=== PATIENT | male | born 1965 | race Caucasian/White ===

== ENCOUNTER → 2019-04-29 | Outpatient (CLI) | payer OTHER ==
[~2019-04-29] MED LIST: LANTUS SOLOS100 U/ML SC; NORCO 325 MG-7.1 TAB PO; TOPROL XL 25MG25 MG PO
== END ==
LOC: COL.VAS 08:00
DX: I73.9 Peripheral vascular disease, unspecified (principal)

== ENCOUNTER 2019-05-13 06:37 | Emergency (ER) | payer OTHER ==
[~2019-05-13] VITALS: Ht 177.8 cm; Wt 109.1 kg
[2019-05-13 07:32] LABS: BASO % 0.2 % (0.0-2.0); EOS # 0.1 (0.0-0.7); EOS % 1.7 % (0-4.0); GRAN # 2.1 (1.4-6.5); GRAN % 50.6 % (42.2-75.2); HEMOGLOBIN 13.9 g/dl (13.5-18.0); LYMPH # 1.6 (1.2-3.4); LYMPH % 37.4 % (20.0-51.0); MEAN CELL VOLUME 92 fl (80.0-100.0); MEAN CORPUSCULAR HEMOGLOBIN 32 pg (27.0-31.0); MEAN CORPUSCULAR HGB CONC 35 g/dl (33.0-37.0); MEAN PLATELET VOLUME 9.6 fl (7.4-10.4); MONO # 0.4 (0.1-0.6); MONO % 9.2 % (1.7-9.3); PLATELET COUNT 133 K/mm3 (130-400); RED BLOOD COUNT 4.33 M/mm3 (4.20-5.60); REDCELL DISTRIBUTION WIDTH-CV 12.4 % (11.5-14.5)
[2019-05-13 07:47] LABS: ACETONE,SERUM NEGATIVE; ALANINE AMINOTRANSFERASE 28 U/L (21-72); ALKALINE PHOSPHATASE 76 U/L (50-136); ANION GAP 12 mmol/L (7-16); AST,SGOT 33 U/L (15-37); BLOOD UREA NITROGEN 8 mg/dL (9-20); CALCIUM 8.9 mg/dL (8.4-10.2); CARBON DIOXIDE 22 mmol/L (22-30); CHLORIDE 105 mmol/L (98-107); CREATININE, serum 0.67 (0.66-1.25); GLUCOSE 268 mg/dL (74-106); SODIUM 139 mmol/L (137-145); TOTAL PROTEIN 7.8 gm/dL (6.4-8.2)
[2019-05-13 07:53] LABS: INR 1.1 (0.8-3.0); PROTHROMBIN TIME 13.4 SECONDS (9.7-12.8)
[2019-05-13 07:56] LABS: PARTIAL THROMBOPLASTIN TIME 33.7 SECONDS (26.0-37.0)
[2019-05-13 08:05] LABS: TROPONIN-I < 0.012 ng/mL (0.000-0.035)
[2019-05-13 09:49] LABS: COLLECTION METHOD CLEAN CATCH
[2019-05-13 10:35] LABS: MUCOUS Present /lpf; PH 5 (5-8); SQUAMOUS EPITHELIAL None Seen /hpf; URINE APPEARANCE Clear; URINE BACTERIA None Seen /hpf; URINE BILIRUBIN Negative (NEGATIVE); URINE BLOOD Negative (NEGATIVE); URINE COLOR Yellow; URINE GLUCOSE 3+ (NEGATIVE); URINE KETONE Negative (NEGATIVE); URINE LEUKOCYTE ESTERASE Negative (NEGATIVE); URINE NITRATE Negative (NEGATIVE); URINE PROTEIN(semi-quant) Negative (NEGATIVE); URINE RBC 0-2 /hpf
[2019-05-13] MEDS ORDERED: DILAUDID 2MG TAB2 MG PO ×2 (11:31→11:42)
[2019-05-13] MEDS ORDERED: LYRICA 150MG C150 MG PO ×2 (11:31→11:42)
[2019-05-13] MEDS ORDERED: TOPROL XL100 MG PO (11:32)
[2019-05-13] MEDS ORDERED: TOUJEO300 U/ML SQ ×2 (11:32→11:43)
[2019-05-13] MEDS ORDERED: CYMBALTA 60MG60 MG PO ×2 (11:33→11:42)
[2019-05-13] MEDS ORDERED: LYRICA 100MG C100 M1 PO (11:33)
[2019-05-13 11:50] VITALS: BP 158/91; PULSE 70; TEMP 98.1
== END 2019-05-13 11:50 | disposition home or self-care (01) ==
LOC: COL.ER 06:37
PROVIDERS: Emergency Medicine
DX: G89.29 Other chronic pain (principal); M79.642 Pain in left hand; M79.641 Pain in right hand; M79.672 Pain in left foot; M79.671 Pain in right foot; E11.40 Type 2 diabetes mellitus with diabetic neuropathy, unspecified; I10 Essential (primary) hypertension; Z90.89 Acquired absence of other organs; Z79.4 Long term (current) use of insulin
CPT/HCPCS: J1170; J7030

== ENCOUNTER 2019-12-09 11:15 | Outpatient (RCR) | payer BC ==
[~2019-12-09 11:15] MED LIST changes: +CYMBALTA 60MG60 MG PO; +DILAUDID 2MG TAB2 MG PO; +LYRICA 100MG C100 M1 PO; +LYRICA 150MG C150 MG PO; +TOPROL XL100 MG PO; +TOUJEO300 U/ML SQ
== END 2020-02-04 ==
LOC: MKS.ESL.PT
DX: G62.9 Polyneuropathy, unspecified (principal)

== ENCOUNTER 2019-12-09 11:15 | Outpatient (RCR) | payer BC | END 2020-02-04 | disposition home or self-care (01) | LOC: MKS.ESL.PT | DX: G62.9 Polyneuropathy, unspecified (principal) ==

== ENCOUNTER 2020-03-01 17:48 | Emergency (ER) | payer BC ==
[~2020-03-01] VITALS: Ht 175.3 cm; Wt 111.4 kg
[2020-03-01 17:57] VITALS: TEMP 97.4
[2020-03-01 18:28] LABS: BASO % 0.4 % (0.0-2.0); EOS % 0.4 % (0-4.0); GRAN # 2.1 (1.4-6.5); HEMATOCRIT 42.5 % (42.0-52.0); HEMOGLOBIN 14.8 g/dl (13.5-18.0); LYMPH # 2.3 (1.2-3.4); LYMPH % 47.7 % (20.0-51.0); MEAN CELL VOLUME 89 fl (80.0-100.0); MEAN CORPUSCULAR HEMOGLOBIN 31 pg (27.0-31.0); MEAN CORPUSCULAR HGB CONC 35 g/dl (33.0-37.0); MEAN PLATELET VOLUME 10.1 fl (7.4-10.4); MONO # 0.3 (0.1-0.6); MONO % 6.9 % (1.7-9.3); PLATELET COUNT 146 K/mm3 (130-400); RED BLOOD COUNT 4.77 M/mm3 (4.20-5.60); REDCELL DISTRIBUTION WIDTH-CV 13.8 % (11.5-14.5)
[2020-03-01 18:36] LABS: ALANINE AMINOTRANSFERASE 38 U/L (4-49); ALBUMIN 4.5 gm/dL (3.5-5.0); ALKALINE PHOSPHATASE 98 U/L (50-136); ANION GAP 13 mmol/L (7-16); AST,SGOT 53 U/L (15-37); BILIRUBIN,TOTAL 0.8 mg/dL (0.0-1.0); BLOOD UREA NITROGEN 6 mg/dL (9-20); CALCIUM 9.7 mg/dL (8.4-10.2); CARBON DIOXIDE 22 mmol/L (22-30); CHLORIDE 104 mmol/L (98-107); CREATININE, serum 0.65 (0.66-1.25); GLUCOSE 144 mg/dL (74-106); POTASSIUM 4.2 mmol/L (3.4-5.0); SODIUM 138 mmol/L (137-145); TOTAL PROTEIN 8.7 gm/dL (6.4-8.2)
[2020-03-01 18:48] LABS: TROPONIN-I < 0.012 ng/mL (0.000-0.035)
[2020-03-01] MEDS ORDERED: DILAUDID 2MG TAB2 MG PO (19:34)
[2020-03-01] MEDS ORDERED: TOPROL XL100 MG PO (19:34)
[2020-03-01] MEDS ORDERED: TOUJEO300 U/ML SQ (19:34)
[2020-03-01 19:50] VITALS: BP 141/91; PULSE 91
[2020-03-01 19:53] LABS: COLLECTION METHOD CLEAN CATCH
[2020-03-01 19:58] LABS: MUCOUS Present /lpf; PH 5 (5-8); SQUAMOUS EPITHELIAL 0-2 /hpf; URINE APPEARANCE Clear; URINE BACTERIA None Seen /hpf; URINE BILIRUBIN Negative (NEGATIVE); URINE BLOOD Negative (NEGATIVE); URINE COLOR Yellow; URINE GLUCOSE Negative (NEGATIVE); URINE KETONE Negative (NEGATIVE); URINE LEUKOCYTE ESTERASE Negative (NEGATIVE); URINE NITRATE Negative (NEGATIVE); URINE PROTEIN(semi-quant) Negative (NEGATIVE); URINE RBC 0-2 /hpf; URINE UROBILINOGEN Negative (NEGATIVE)
== END 2020-03-01 19:50 | disposition home or self-care (01) ==
LOC: COL.ER 17:48
PROVIDERS: Nurse Practitioner Primary Care
DX: E11.40 Type 2 diabetes mellitus with diabetic neuropathy, unspecified (principal); Z88.6 Allergy status to analgesic agent; Z90.49 Acquired absence of other specified parts of digestive tract; Z91.19 Patient's noncompliance with other medical treatment and regimen
CPT/HCPCS: J1170; J7030

== ENCOUNTER 2020-03-14 03:50 | Emergency (ER) | payer BC ==
[~2020-03-14] VITALS: Ht 172.7 cm; Wt 109.1 kg
[2020-03-14 05:50] VITALS: BP 138/68; PULSE 74; TEMP 97.2
== END 2020-03-14 06:39 | disposition home or self-care (01) ==
LOC: COL.ER 03:50
DX: G89.29 Other chronic pain (principal); M79.641 Pain in right hand; M79.642 Pain in left hand; M79.661 Pain in right lower leg; M79.662 Pain in left lower leg; E11.40 Type 2 diabetes mellitus with diabetic neuropathy, unspecified; Z79.4 Long term (current) use of insulin
CPT/HCPCS: J1170; J1790; J1815

== ENCOUNTER 2020-04-07 18:04 | Emergency (ER) | payer BC ==
[~2020-04-07] VITALS: Ht 175.3 cm; Wt 109.1 kg
[2020-04-07 18:19] VITALS: TEMP 100.8
[2020-04-07 19:12] LABS: BASO % 0.2 % (0.0-2.0); EOS # 0.1 (0.0-0.7); EOS % 1.2 % (0-4.0); GRAN # 2.9 (1.4-6.5); GRAN % 59.3 % (42.2-75.2); HEMATOCRIT 41.6 % (42.0-52.0); HEMOGLOBIN 14.5 g/dl (13.5-18.0); LYMPH # 1.4 (1.2-3.4); LYMPH % 29.3 % (20.0-51.0); MEAN CELL VOLUME 90 fl (80.0-100.0); MEAN CORPUSCULAR HEMOGLOBIN 31 pg (27.0-31.0); MEAN CORPUSCULAR HGB CONC 35 g/dl (33.0-37.0); MEAN PLATELET VOLUME 9.9 fl (7.4-10.4); MONO # 0.5 (0.1-0.6); MONO % 9.4 % (1.7-9.3); PLATELET COUNT 137 K/mm3 (130-400); RED BLOOD COUNT 4.65 M/mm3 (4.20-5.60); REDCELL DISTRIBUTION WIDTH-CV 12.5 % (11.5-14.5)
[2020-04-07 19:24] LABS: ALBUMIN 4.5 gm/dL (3.5-5.0); BILIRUBIN,TOTAL 1.4 mg/dL (0.0-1.0); CALCIUM 9.3 mg/dL (8.4-10.2); CREATININE, serum 0.82 (0.66-1.25); POTASSIUM 3.6 mmol/L (3.4-5.0); TOTAL PROTEIN 8.3 gm/dL (6.4-8.2)
[2020-04-07 19:25] LABS: C-REACTIVE PROTEIN 0.5 mg/dL (0.0-0.9)
[2020-04-07] MEDS ORDERED: ZITHROMAX 250M250 MG PO (19:54)
[2020-04-07 20:20] VITALS: BP 143/94; PULSE 79
== END 2020-04-07 20:40 | disposition home or self-care (01) ==
LOC: COL.ER 18:04
PROVIDERS: Emergency Medicine
DX: U07.1 COVID-19 (principal); E11.40 Type 2 diabetes mellitus with diabetic neuropathy, unspecified; G89.29 Other chronic pain; Z79.4 Long term (current) use of insulin; Z90.49 Acquired absence of other specified parts of digestive tract; Z88.6 Allergy status to analgesic agent
CPT/HCPCS: J7030

== ENCOUNTER → 2020-05-10 | Outpatient (CLI) | payer BC ==
[~2020-05-10] MED LIST changes: +ZITHROMAX 250M250 MG PO
[2020-05-10 12:46] LABS: ALBUMIN 4.5 gm/dL (3.5-5.0); BILIRUBIN,TOTAL 1.1 mg/dL (0.0-1.0); CALCIUM 9.7 mg/dL (8.4-10.2); CREATININE, serum 0.69 (0.66-1.25); POTASSIUM 4.1 mmol/L (3.4-5.0)
== END ==
LOC: COL.RAD 10:33
PROVIDERS: Physician Assistant
DX: R91.8 Other nonspecific abnormal finding of lung field (principal)
CPT/HCPCS: Q9967

== ENCOUNTER 2021-01-05 01:32 | Emergency (ER) | payer SELFPAY ==
[~2021-01-05] VITALS: Ht 175.3 cm; Wt 100.0 kg
[2021-01-05 01:45] VITALS: BP 152/104; PULSE 82; TEMP 98.3
[2021-01-05 02:23] LABS: COLLECTION METHOD CLEAN CATCH
[2021-01-05 02:30] LABS: MUCOUS Present /lpf; PH 5 (5-8); SQUAMOUS EPITHELIAL 0-2 /hpf; URINE APPEARANCE Clear; URINE BACTERIA None Seen /hpf; URINE BILIRUBIN Negative (NEGATIVE); URINE BLOOD 1+ (NEGATIVE); URINE COLOR Yellow; URINE GLUCOSE 3+ (NEGATIVE); URINE KETONE Negative (NEGATIVE); URINE LEUKOCYTE ESTERASE Trace (NEGATIVE); URINE NITRATE Negative (NEGATIVE); URINE PROTEIN(semi-quant) Negative (NEGATIVE); URINE RBC 0-2 /hpf; URINE UROBILINOGEN Negative (NEGATIVE)
[2021-01-05 02:35] LABS: TRICYCLIC ANTIDEPRESS URINE POSITIVE
[2021-01-05 02:49] LABS: BASO % 0.4 % (0.0-2.0); EOS # 0.2 (0.0-0.7); EOS % 3.6 % (0-4.0); GRAN # 3.3 (1.4-6.5); GRAN % 49.1 % (42.2-75.2); HEMATOCRIT 44.9 % (42.0-52.0); HEMOGLOBIN 15.4 g/dl (13.5-18.0); LYMPH # 2.6 (1.2-3.4); LYMPH % 39.2 % (20.0-51.0); MEAN CELL VOLUME 95 fl (80.0-100.0); MEAN CORPUSCULAR HEMOGLOBIN 33 pg (27.0-31.0); MEAN CORPUSCULAR HGB CONC 34 g/dl (33.0-37.0); MEAN PLATELET VOLUME 8.7 fl (7.4-10.4); MONO # 0.5 (0.1-0.6); MONO % 6.7 % (1.7-9.3); PLATELET COUNT 144 K/mm3 (130-400); RED BLOOD COUNT 4.71 M/mm3 (4.20-5.60); REDCELL DISTRIBUTION WIDTH-CV 13.6 % (11.5-14.5)
[2021-01-05 03:01] LABS: ALBUMIN 4.7 gm/dL (3.5-5.0); BILIRUBIN,TOTAL 0.9 mg/dL (0.0-1.0); CALCIUM 9.4 mg/dL (8.4-10.2); CREATININE, serum 0.56 (0.66-1.25); POTASSIUM 4.1 mmol/L (3.4-5.0)
[2021-01-05 03:33] LABS: ALCOHOL(ethanol),MEDICAL 184 mg/dL
[2021-01-05 03:44] LABS: ACETAMINOPHEN < 10 ug/mL (10-30); SALICYLATE < 1.0 mg/dL
[2021-01-06] MEDS ORDERED: AMOXICILLIN 50500 MG PO (20:44)
== END 2021-01-05 11:09 | disposition home or self-care (01) ==
LOC: COL.ER 01:32
PROVIDERS: Emergency Medicine Emergency Medical Services
DX: G89.29 Other chronic pain (principal); M79.641 Pain in right hand; M79.642 Pain in left hand; M79.671 Pain in right foot; M79.672 Pain in left foot; E11.40 Type 2 diabetes mellitus with diabetic neuropathy, unspecified; R94.5 Abnormal results of liver function studies; R45.851 Suicidal ideations; B34.9 Viral infection, unspecified; Z79.4 Long term (current) use of insulin

== ENCOUNTER 2021-02-19 17:29 | Emergency (ER) | payer SELFPAY ==
[~2021-02-19] VITALS: Ht 175.3 cm; Wt 104.5 kg
[~2021-02-19 17:29] MED LIST changes: +AMOXICILLIN 50500 MG PO
[2021-02-19 17:57] VITALS: TEMP 99
[2021-02-19 18:38] LABS: BASO % 0.5 % (0.0-2.0); EOS # 0.1 (0.0-0.7); EOS % 0.8 % (0-4.0); GRAN # 3.8 (1.4-6.5); GRAN % 49.2 % (42.2-75.2); HEMATOCRIT 48.1 % (42.0-52.0); HEMOGLOBIN 17.1 g/dl (13.5-18.0); LYMPH # 3.3 (1.2-3.4); LYMPH % 42.7 % (20.0-51.0); MEAN CELL VOLUME 96 fl (80.0-100.0); MEAN CORPUSCULAR HEMOGLOBIN 34 pg (27.0-31.0); MEAN CORPUSCULAR HGB CONC 36 g/dl (33.0-37.0); MEAN PLATELET VOLUME 8.8 fl (7.4-10.4); MONO # 0.5 (0.1-0.6); MONO % 6.2 % (1.7-9.3); PLATELET COUNT 164 K/mm3 (130-400); RED BLOOD COUNT 5.03 M/mm3 (4.20-5.60); REDCELL DISTRIBUTION WIDTH-CV 14.1 % (11.5-14.5)
[2021-02-19 18:50] LABS: ALANINE AMINOTRANSFERASE 60 U/L (4-49); ALBUMIN 4.8 gm/dL (3.5-5.0); ALCOHOL(ethanol),MEDICAL 246 mg/dL; ALKALINE PHOSPHATASE 113 U/L (50-136); ANION GAP 16 mmol/L (7-16); AST,SGOT 132 U/L (15-37); BILIRUBIN,TOTAL 0.9 mg/dL (0.0-1.0); BLOOD UREA NITROGEN 5 mg/dL (9-20); CALCIUM 9.4 mg/dL (8.4-10.2); CARBON DIOXIDE 20 mmol/L (22-30); CHLORIDE 106 mmol/L (98-107); CREATININE, serum 0.73 (0.66-1.25); GLUCOSE 168 mg/dL (74-106); POTASSIUM 4.2 mmol/L (3.4-5.0); SODIUM 142 mmol/L (137-145); TOTAL PROTEIN 9.3 gm/dL (6.4-8.2)
[2021-02-19 19:00] LABS: ACETAMINOPHEN < 10 ug/mL (10-30); SALICYLATE < 1.0 mg/dL
[2021-02-19 19:16] LABS: COLLECTION METHOD CLEAN CATCH
[2021-02-19 19:22] LABS: MUCOUS Present /lpf; PH 5 (5-8); SQUAMOUS EPITHELIAL 0-2 /hpf; URINE APPEARANCE Clear; URINE BACTERIA None Seen /hpf; URINE BILIRUBIN Negative (NEGATIVE); URINE BLOOD Negative (NEGATIVE); URINE COLOR Yellow; URINE GLUCOSE Negative (NEGATIVE); URINE KETONE Negative (NEGATIVE); URINE LEUKOCYTE ESTERASE Negative (NEGATIVE); URINE NITRATE Negative (NEGATIVE); URINE PROTEIN(semi-quant) Negative (NEGATIVE); URINE RBC 0-2 /hpf; URINE UROBILINOGEN Negative (NEGATIVE)
[2021-02-19 19:38] LABS: TRICYCLIC ANTIDEPRESS URINE POSITIVE
[2021-02-20 04:16] VITALS: BP 137/73; PULSE 88
== END 2021-02-20 04:16 | disposition home or self-care (01) ==
LOC: COL.ER 17:29
PROVIDERS: Physician Assistant
DX: R45.851 Suicidal ideations (principal); G89.29 Other chronic pain; E11.40 Type 2 diabetes mellitus with diabetic neuropathy, unspecified; Z79.4 Long term (current) use of insulin; Z79.891 Long term (current) use of opiate analgesic
CPT/HCPCS: J1630; J2060

== ENCOUNTER 2024-01-23 16:40 | Emergency (ER) | payer MEDICAID ==
[~2024-01-23] VITALS: Ht 175.3 cm; Wt 104.5 kg
[~2024-01-23 16:40] MED LIST changes: +AMITRIPTYLINE H25 M1; +DILAUDID 4MG TAB4 MG; +MORPHINE 1515 MG/TAB; +NEXIUM 40MG40 MG
[2024-01-23 16:44] VITALS: TEMP 98.5
[2024-01-23] MEDS ORDERED: Morphine 4 MG/ML VIAL IV ONE (17:30)
[2024-01-23 18:05] LABS: BASO % 0.2 % (0.0-2.0); EOS # 0.1 K/mm3 (0.0-0.7); EOS % 1.1 % (0.0-4.0); GRAN # 2.2 K/mm3 (1.4-6.5); GRAN % 50.4 % (42.2-75.2); HEMATOCRIT 40.8 % (42.0-52.0); LYMPH # 1.7 K/mm3 (1.2-3.4); LYMPH % 37.8 % (20.0-51.0); MEAN CELL VOLUME 88 fl (80.0-100.0); MEAN CORPUSCULAR HEMOGLOBIN 30 pg (27-31); MEAN CORPUSCULAR HGB CONC 34 g/dl (33.0-37.0); MONO # 0.4 K/mm3 (0.1-0.6); MONO % 9.4 % (1.7-9.3); PLATELET COUNT 170 K/mm3 (130-400); RED BLOOD COUNT 4.62 M/mm3 (4.20-5.60); REDCELL DISTRIBUTION WIDTH-CV 15.1 % (11.5-14.5)
[2024-01-23 18:17] LABS: ALANINE AMINOTRANSFERASE 12 U/L (0-55); ALBUMIN 3.5 g/dL (3.5-5.0); ALKALINE PHOSPHATASE 56 U/L (40-150); ANION GAP 11 mmol/L (7-16); AST,SGOT 15 U/L (5-34); BILIRUBIN,TOTAL 0.5 mg/dL (0.2-1.2); CALCIUM 9.4 mg/dL (8.4-10.2); CHLORIDE 105 mEq/L (98-107); CREATININE, serum 0.83 mg/dL (0.72-1.25); GLUCOSE 202 mg/dL (70-99); POTASSIUM 4.2 mEq/L (3.5-4.5); SODIUM 141 mEq/L (136-145); TOTAL PROTEIN 6.9 g/dl (6.2-8.1)
[2024-01-23 18:19] LABS: BLOOD UREA NITROGEN < 5 mg/dL (8-26)
[2024-01-23] MEDS ORDERED: Iohexol 300 - 100 ML VIAL IV ONE (18:58)
[2024-01-23] MEDS ORDERED: NS 50 ML IV ONE (18:59)
[2024-01-23] MEDS ORDERED: Home HYDROcodone/Acetaminophen 5/325 MG #4 TABS/PACK PO ONE (20:00)
[2024-01-23 20:05] VITALS: BP 140/97; PULSE 85
== END 2024-01-23 20:05 | disposition home or self-care (01) ==
LOC: COL.ER 16:40
PROVIDERS: Nurse Practitioner
DX: S06.9X9A Unspecified intracranial injury with loss of consciousness of unspecified duration, initial encounter (principal); S16.1XXA Strain of muscle, fascia and tendon at neck level, initial encounter; S20.212A Contusion of left front wall of thorax, initial encounter; W17.89XA Other fall from one level to another, initial encounter; W22.8XXA Striking against or struck by other objects, initial encounter; Y93.H2 Activity, gardening and landscaping
CPT/HCPCS: Q9967

== ENCOUNTER 2024-01-26 14:37 | Emergency (ER) | payer MEDICAID ==
[~2024-01-26] VITALS: Ht 175.3 cm; Wt 104.5 kg
[2024-01-26 14:46] VITALS: BP 167/105; PULSE 93; TEMP 98.2
[2024-01-26] MEDS ORDERED: Ondansetron 4 MG/2 ML VIAL IV ONE (15:45)
[2024-01-26] MEDS ORDERED: LR 1,000 ML IV ONE (15:45)
[2024-01-26] MEDS ORDERED: Morphine 4 MG/ML VIAL IV ONE (15:45)
[2024-01-26] MEDS ORDERED: droPERidol 2.5 MG/ML 2 ML VIAL IV ONE (15:45)
[2024-01-26 16:04] LABS: BASO % 0.2 % (0.0-2.0); EOS % 0.2 % (0.0-4.0); GRAN # 7.3 K/mm3 (1.4-6.5); GRAN % 75.5 % (42.2-75.2); HEMATOCRIT 45.6 % (42.0-52.0); LYMPH # 1.9 K/mm3 (1.2-3.4); LYMPH % 19.2 % (20.0-51.0); MEAN CELL VOLUME 85 fl (80.0-100.0); MEAN CORPUSCULAR HEMOGLOBIN 30 pg (27-31); MEAN CORPUSCULAR HGB CONC 35 g/dl (33.0-37.0); MEAN PLATELET VOLUME 9.8 fl (7.4-10.4); MONO # 0.4 K/mm3 (0.1-0.6); MONO % 4.5 % (1.7-9.3); PLATELET COUNT 186 K/mm3 (130-400); RED BLOOD COUNT 5.38 M/mm3 (4.20-5.60); REDCELL DISTRIBUTION WIDTH-CV 14.8 % (11.5-14.5)
[2024-01-26 16:17] LABS: ALANINE AMINOTRANSFERASE 14 U/L (0-55); ALKALINE PHOSPHATASE 71 U/L (40-150); ANION GAP 13 mmol/L (7-16); AST,SGOT 15 U/L (5-34); BILIRUBIN,TOTAL 1.2 mg/dL (0.2-1.2); C-REACTIVE PROTEIN 0.09 mg/dL (0.00-0.50); CALCIUM 9.5 mg/dL (8.4-10.2); CHLORIDE 106 mEq/L (98-107); CREATININE, serum 1.48 mg/dL (0.72-1.25); GLUCOSE 206 mg/dL (70-99); POTASSIUM 3.6 mEq/L (3.5-4.5); SODIUM 138 mEq/L (136-145); TOTAL PROTEIN 7.7 g/dl (6.2-8.1)
[2024-01-26 16:22] LABS: HEMOGLOBIN 16.1 g/dl (13.5-18.0)
[2024-01-26 16:25] LABS: BLOOD UREA NITROGEN < 5 mg/dL (8-26)
[2024-01-26] MEDS ORDERED: NS 1,000 ML IV ONE (17:00)
[2024-01-26] MEDS ORDERED: ZOFRAN ODT4 MG PO (17:51)
== END 2024-01-26 18:37 | disposition home or self-care (01) ==
LOC: COL.ER 14:37
PROVIDERS: Family Medicine
DX: E86.0 Dehydration (principal); E11.9 Type 2 diabetes mellitus without complications
CPT/HCPCS: J1790; J2270; J7120